=== PATIENT | male | born 1980 | race Caucasian/White ===

== ENCOUNTER → 2017-01-07 | Outpatient (CLI) | payer BC | END | disposition home or self-care (01) | LOC: MW.RT 19:53 | PROVIDERS: ATTEND Internal Medicine | DX: G47.30 Sleep apnea, unspecified (principal); R06.83 Snoring; G47.61 Periodic limb movement disorder; I49.5 Sick sinus syndrome; I10 Essential (primary) hypertension | CPT/HCPCS: 95810 ==

== ENCOUNTER 2017-05-19 03:05 | Emergency (ER) | payer BC ==
[2017-05-19] MEDS ORDERED: Sodium Chloride 0.9% 1,000 ML IV ONE ×2 (03:29→04:10)
[2017-05-19] MEDS ORDERED: Sodium Chloride 0.9% 2.5 ML Syringe FLUSH PRN (03:29)
[2017-05-19] MEDS ORDERED: Sodium Chloride 0.9% 10 ML Syringe FLUSH PRN (03:29)
[2017-05-19] MEDS ORDERED: Ketorolac 30 MG/ML SDV IVPUSH ONE (03:29)
--- NOTE | 2017-05-19 03:33 | EDM.PDOC ---
ED HPI GENERAL MEDICAL PROBLEM - General Chief Complaint: Headache Stated Complaint: BODY ACHES, CRAMPS, BLURRY VISION Time Seen by Provider: 05/19/17 03:22 - History of Present Illness INITIAL COMMENTS - FREE TEXT/NARRATIVE: HISTORY AND PHYSICAL: History of present illness: The patient is a 36-year-old male with a history of triglyceridemia LVH anxiety heavy tobacco use and regular alcohol use who presents to the ER with complaints of body aches that started this morning but then seemed to improve his the day went on but which returned at about 9 PM associated with a diffuse headache. The patient describes the headache is all over his head and not specifically right or left front or back. He has no neck pain no sore throat no sinus drainage or congestion no cough no chest pain or shortness of breath no abdominal pain no nausea vomiting or diarrhea. The patient thinks he's been keeping up with his hydration but is not completely sure. The patient does drink alcohol on a regular basis but says he has cut back significantly. According to the patient he was on medication after his admission in October and did do some follow-up has not followed up recently and stopped taking all of his medication. He believes he is on something for blood pressure and his heart. The patient denies any urinary complaints and has no focal weakness but feels like he has generalized weakness and malaise. He has not had any syncope and has no back pain. The patient did not have a documented temperature at home but feels feverish in his face but his body feels cold. On my evaluation conversation with the patient he denied any specific location of the body aches and so they were diffuse throughout his whole body. On one occasion he did tell nursing that his back was hurting him but when re-asked about the specific nature of that he again stated it's more diffuse body pain which is generalized in one specific area. The patient denies any drug use history. Patient denies any focal weakness in his extremities and has no neurosensory changes in his extremities. Review of systems: As per history of present illness and below otherwise all systems reviewed and negative. Past medical history: As per history of present illness and as reviewed below otherwise noncontributory. Surgical history: As per history of present illness and as reviewed below otherwise noncontributory. Social history: No reported history of drug or alcohol abuse. Family history: As per history of present illness and as reviewed below otherwise noncontributory. Physical exam: Gen.: Well-developed well-nourished man speaking clearly in the ED and is nontoxic and moves easily in the ER. Vital signs of the note by me. Temperature by me orally was 99. 6 although his face felt somewhat warmer than that temperature. HEENT: Atraumatic, normocephalic, pupils reactive, negative for conjunctival pallor or scleral icterus, mucous membranes moist, throat clear, neck supple, nontender, trachea midline. There is no cervical adenopathy or nuchal rigidity Lungs: Clear to auscultation, breath sounds equal bilaterally, chest nontender. Heart: S1S2, regular rate and rhythm no overt murmurs Abdomen: Soft, nondistended, nontender. Negative for masses or hepatosplenomegaly. Hypoactive bowel sounds Negative for costovertebral tenderness. Pelvis: Stable nontender. Genitourinary: Deferred. Rectal: Deferred. Extremities: Atraumatic, negative for cords or calf pain. Neurovascular unremarkable. Neuro: Awake, alert, oriented. Cranial nerves II through XII unremarkable. Cerebellum unremarkable. Motor and sensory unremarkable throughout. Exam nonfocal. Patient exhibits no sign of tremulousness Back: There are no midline step-offs tenderness or defects of the thoracic or lumbar spine no posterior rib tenderness no CVA tenderness and no discrete areas of muscle tenderness on palpation Diagnostics: CBC CMP lactic acid UA alcohol level chest x-ray Therapeutics: IV fluids Toradol Patient states that his headache is gone after the Toradol and is receiving a second liter of IV fluids as he has had difficulty producing urine after the first liter. Patient is aware of testing results up to this point and we are currently awaiting his UA results to further evaluate his hydration status. I told him that he would likely need to have follow-up in the clinic and is potentially could be more of a viral illness with some dehydration. Nursing again tells me that the patient is complaining of lower back pain. When I go in and reevaluated him he does not have any midline step-offs tenderness or defects of the lumbar spine and there is some reproducible paraspinal muscle discomfort which she describes as deep an achy like. The patient says he has had discomfort on and off in the past and he initially did not have that when he presented here to the ED but since he is laying in the bed he feels that she' s been getting more spasm-like discomfort. He says that he has seen a chiropractor in the past and his has been encouraging him to go back to the chiropractor. We will go ahead and order some morphine and plan on disposition home and have encouraged him to follow-up in our clinic or see the chiropractor this choice to have the lower back pain reevaluated. He doesn't have any numbness weakness neurosensory changes or bowel or bladder disturbances so imaging will be deferred as he has not had any trauma. He is comfortable with that. Impression: Body aches/malaise, headache, lumbar back pain stable etiology unclear Definitive disposition and diagnosis as appropriate pending reevaluation and review of above. headache Pain Score (Numeric/FACES): 5 generalized Pain Score (Numeric/FACES): 4 - Related Data Allergies Allergy/AdvReac Type Severity Reaction Status Date / Time No Known Allergies Allergy Verified 11/09/16 13:41 Home Meds: Home Meds . [No Known Home Meds] 05/19/17 [History] Past Medical History - Past Health History Medical/Surgical History: Denies Medical/Surgical History HEENT History: Reports: None Cardiovascular History: Reports: Other (See Below) Other Cardiovascular History: Dx chest pain Respiratory History: Reports: None Gastrointestinal History: Reports: None Genitourinary History: Reports: None Musculoskeletal History: Reports: None Neurological History: Reports: None Psychiatric History: Reports: None Endocrine/Metabolic History: Reports: None Hematologic History: Reports: None Immunologic History: Reports: None Oncologic (Cancer) History: Reports: None Dermatologic History: Reports: None - Infectious Disease History Infectious Disease History: Reports: Chicken Pox - Past Surgical History Head Surgeries/Procedures: Reports: None HEENT Surgical History: Reports: None GI Surgical History: Reports: Colonoscopy Male Surgical History: Reports: None Endocrine Surgical History: Reports: None Neurological Surgical History: Reports: None Musculoskeletal Surgical History: Reports: None Dermatological Surgical History: Reports: None Social & Family History - Family History Family Medical History: Noncontributory HEENT: Reports: None Cardiac: Reports: [place] Respiratory: Reports: None GI: Reports: None : Reports: None OBGYN: Reports: None Musculoskeletal: Reports: None Psychiatric: Reports: None Endocrine/Metabolic: Reports: None Hematologic: Reports: None Immunologic: Reports: None Dermatologic: Reports: None Oncologic: Reports: None - Tobacco Use Smoking Status *Q: Current Every Day Smoker Years of Tobacco use: 12 Packs/Tins Daily: 0.5 Second Hand Smoke Exposure: No - Caffeine Use Caffeine Use: Reports: Energy Drinks - Alcohol Use Days Per Week of Alcohol Use: 2 Number of Drinks Per Day: 2 Total Drinks Per Week: 4 - Recreational Drug Use Recreational Drug Use: No ED ROS GENERAL - Review of Systems Review Of Systems: ROS reveals no pertinent complaints other than HPI. ED EXAM, GENERAL - Physical Exam Exam: See Below (See dictation) Course - Vital Signs Last Recorded V/S: Last Vital Signs Temp 37.4 C 05/19/17 03:17 Pulse 100 05/19/17 03:17 Resp 20 05/19/17 03:17 BP 140/111 H 05/19/17 03:17 Pulse Ox 100 05/19/17 03:17 - Orders/Labs/Meds Orders: Active Orders 24 hr Category Date Time Status Chest 2V [CR] Stat Exams 05/19/17 03:29 Taken Sodium Chloride 0.9% [Saline Flush] Med 05/19/17 03:29 Active 10 ml FLUSH ASDIRECTED PRN Sodium Chloride 0.9% [Saline Flush] Med 05/19/17 03:29 Active 2.5 ml FLUSH ASDIRECTED PRN Saline Lock Insert [OM.PC] Stat Oth 05/19/17 03:29 Ordered Medication Orders Sodium Chloride (Saline Flush) 10 ml FLUSH ASDIRECTED PRN PRN Reason: Keep Vein Open Last Admin: 05/19/17 03:40 Dose: 10 ml Sodium Chloride (Saline Flush) 2.5 ml FLUSH ASDIRECTED PRN PRN Reason: Keep Vein Open Last Admin: 05/19/17 03:40 Dose: 2.5 ml Labs: Laboratory Tests 05/19/17 05/19/17 05/19/17 Range/Units 03:33 03:33 03:33 WBC 3.68 L (4.0-11.0) K/uL RBC 4.87 (4.50-5.90) M/uL Hgb 14.8 (13.0-17.0) g/dL Hct 43.4 (38.0-50.0) % MCV 89.1 (80.0-98.0) fL MCH 30.4 (27.0-32.0) pg MCHC 34.1 (31.0-37.0) g/dL RDW Std Deviation 45.7 (28.0-62.0) fl RDW Coeff of Irina 14 (11.0-15.0) % Plt Count 131 L (150-400) K/uL MPV 10.20 (7.40-12.00) fL Neut % (Auto) 55.2 (48.0-80.0) % Lymph % (Auto) 30.4 (16.0-40.0) % Banner % (Auto) 12.5 (0.0-15.0) % Eos % (Auto) 1.4 (0.0-7.0) % Baso % (Auto) 0.5 (0.0-1.5) % Neut # (Auto) 2.0 (1.4-5.7) K/uL Lymph # (Auto) 1.1 (0.6-2.4) K/uL Banner # (Auto) 0.5 (0.0-0.8) K/uL Eos # (Auto) 0.1 (0.0-0.7) K/uL Baso # (Auto) 0.0 (0.0-0.1) K/uL Nucleated RBC % 0.0 /100WBC Nucleated RBCs # 0 K/uL Lactate 1.4 (0.20-2.00) mmol/L Sodium 136 (136-146) mmol/L Potassium 4.1 (3.5-5.1) mmol/L Chloride 106 (98-110) mmol/L Carbon Dioxide 19 L (21-31) mmol/L BUN 14 (6.0-23.0) mg/dL Creatinine 1.2 (0.6-1.5) mg/dL Est Cr Clr Drug Dosing 95.25 mL/min Estimated GFR (MDRD) > 60.0 ml/min Glucose 100 (60-110) mg/dL Calcium 8.7 L (8.8-10.8) mg/dL Total Bilirubin 0.3 (0.1-1.5) mg/dL AST 38 (5-40) IU/L ALT 64 H (8-54) IU/L Alkaline Phosphatase 72 (40-150) Total Protein 7.1 (6.0-8.0) g/dL Albumin 4.0 (3.5-5.0) g/dL Globulin 3.1 (2.0-3.5) g/dL Albumin/Globulin Ratio 1.3 (1.3-2.8) Urine Color Urine Appearance Urine pH (5.0-8.0) Ur Specific [place] (1.001-1.035) Urine Protein (NEGATIVE) mg/dL Urine Glucose (UA) (NEGATIVE) mg/dL Urine Ketones (NEGATIVE) mg/dL Urine Occult Blood (NEGATIVE) Urine Nitrite (NEGATIVE) Urine Bilirubin (NEGATIVE) Urine Urobilinogen (<2.0) EU/dL Ur Leukocyte Esterase (NEGATIVE) Urine RBC (0-2/HPF) Urine WBC (0-5/HPF) Ur Epithelial Cells (NONE-FEW) Urine Bacteria (NEGATIVE) Ethyl Alcohol < 10.0 mg/dL 05/19/17 Range/Units 04:45 WBC (4.0-11.0) K/uL RBC (4.50-5.90) M/uL Hgb (13.0-17.0) g/dL Hct (38.0-50.0) % MCV (80.0-98.0) fL MCH (27.0-32.0) pg MCHC (31.0-37.0) g/dL RDW Std Deviation (28.0-62.0) fl RDW Coeff of Irina (11.0-15.0) % Plt Count (150-400) K/uL MPV (7.40-12.00) fL Neut % (Auto) (48.0-80.0) % Lymph % (Auto) (16.0-40.0) % Banner % (Auto) (0.0-15.0) % Eos % (Auto) (0.0-7.0) % Baso % (Auto) (0.0-1.5) % Neut # (Auto) (1.4-5.7) K/uL Lymph # (Auto) (0.6-2.4) K/uL Banner # (Auto) (0.0-0.8) K/uL Eos # (Auto) (0.0-0.7) K/uL Baso # (Auto) (0.0-0.1) K/uL Nucleated RBC % /100WBC Nucleated RBCs # K/uL Lactate (0.20-2.00) mmol/L Sodium (136-146) mmol/L Potassium (3.5-5.1) mmol/L Chloride (98-110) mmol/L Carbon Dioxide (21-31) mmol/L BUN (6.0-23.0) mg/dL Creatinine (0.6-1.5) mg/dL Est Cr Clr Drug Dosing mL/min Estimated GFR (MDRD) ml/min Glucose (60-110) mg/dL Calcium (8.8-10.8) mg/dL Total Bilirubin (0.1-1.5) mg/dL AST (5-40) IU/L ALT (8-54) IU/L Alkaline Phosphatase (40-150) Total Protein (6.0-8.0) g/dL Albumin (3.5-5.0) g/dL Globulin (2.0-3.5) g/dL Albumin/Globulin Ratio (1.3-2.8) Urine Color YELLOW Urine Appearance CLEAR Urine pH 6.0 (5.0-8.0) Ur Specific [place] 1.020 (1.001-1.035) Urine Protein NEGATIVE (NEGATIVE) mg/dL Urine Glucose (UA) NEGATIVE (NEGATIVE) mg/dL Urine Ketones NEGATIVE (NEGATIVE) mg/dL Urine Occult Blood NEGATIVE (NEGATIVE) Urine Nitrite NEGATIVE (NEGATIVE) Urine Bilirubin NEGATIVE (NEGATIVE) Urine Urobilinogen 0.2 (<2.0) EU/dL Ur Leukocyte Esterase NEGATIVE (NEGATIVE) Urine RBC NONE SEEN (0-2/HPF) Urine WBC 0-1 (0-5/HPF) Ur Epithelial Cells RARE (NONE-FEW) Urine Bacteria RARE (NEGATIVE) Ethyl Alcohol mg/dL Meds: Medications Generic Name Dose Route Start Last Admin Trade Name Freq PRN Reason Stop Dose Admin Sodium Chloride 10 ml 05/19/17 03:29 05/19/17 03:40 Saline Flush FLUSH 10 ml ASDIRECTED PRN Administration Keep Vein Open Sodium Chloride 2.5 ml 05/19/17 03:29 05/19/17 03:40 Saline Flush FLUSH 2.5 ml ASDIRECTED PRN Administration Keep Vein Open Discontinued Medications Generic Name Dose Route Start Last Admin Trade Name Freq PRN Reason Stop Dose Admin Sodium Chloride 1,000 mls @ 999 mls/hr 05/19/17 03:29 05/19/17 03:40 Normal Saline IV 05/19/17 04:29 999 mls/hr STAT ONE Administration Sodium Chloride 1,000 mls @ 999 mls/hr 05/19/17 04:10 05/19/17 04:54 Normal Saline IV 05/19/17 05:10 999 mls/hr .Bolus ONE Administration Ketorolac Tromethamine 30 mg 05/19/17 03:29 05/19/17 03:40 Toradol IVPUSH 05/19/17 03:30 30 mg ONETIME ONE Administration Morphine Sulfate 4 mg 05/19/17 05:18 Morphine IVPUSH 05/19/17 05:19 ONETIME ONE Ondansetron HCl 4 mg 05/19/17 05:18 Zofran IVPUSH 05/19/17 05:19 ONETIME ONE Departure - Departure Time of Disposition: 05:26 Disposition: Home, Self-Care 01 Condition: Good Clinical Impression: Body aches, Malaise and fatigue Headache Qualifiers: Headache type: unspecified Headache chronicity pattern: acute headache Intractability: not intractable Qualified Code(s): R51 - Headache Back pain Qualifiers: Back pain location: low back pain Chronicity: unspecified Back pain laterality : bilateral Sciatica presence: without sciatica Qualified Code(s): M54.5 - Low back pain - Discharge Information Referrals: PCP,None [Primary Care Provider] - Forms: ED Department Discharge Additional Instructions: The following information is given to patients seen in the emergency department who are being discharged to home. This information is to outline your options for follow-up care. We provide all patients seen in our emergency department with a follow-up referral. The need for follow-up, as well as the timing and circumstances, are variable depending upon the specifics of your emergency department visit. If you don't have a primary care physician on staff, we will provide you with a referral. We always advise you to contact your personal physician following an emergency department visit to inform them of the circumstance of the visit and for follow-up with them and/or the need for any referrals to a consulting specialist. The emergency department will also refer you to a specialist when appropriate. This referral assures that you have the opportunity for followup care with a specialist. All of these measure are taken in an effort to provide you with optimal care, which includes your followup. Under all circumstances we always encourage you to contact your private physician who remains a resource for coordinating your care. When calling for followup care, please make the office aware that this follow-up is from your recent emergency room visit. If for any reason you are refused follow-up, please contact the [facility] emergency department at and ask to speak to the emergency department charge nurse. [facility] Primary care- Internal Medicine and Family [address] [address] Please call and follow-up in our clinic with one of her providers return to ER as needed as discussed. Rest push hydration use [id number] Tylenol and ibuprofen for aches and pains as well as any fevers. Use tramadol you have been prescribed via [facility] if pain does not improve with the Tylenol and ibuprofen. - My Orders Last 24 Hours: My Active Orders 05/19/17 03:29 Chest 2V [CR] Stat Sodium Chloride 0.9% [Saline Flush] 10 ml FLUSH ASDIRECTED PRN Sodium Chloride 0.9% [Saline Flush] 2.5 ml FLUSH ASDIRECTED PRN Saline Lock Insert [OM.PC] Stat - Assessment/Plan Last 24 Hours: My Active Orders 05/19/17 03:29 Chest 2V [CR] Stat Sodium Chloride 0.9% [Saline Flush] 10 ml FLUSH ASDIRECTED PRN Sodium Chloride 0.9% [Saline Flush] 2.5 ml FLUSH ASDIRECTED PRN Saline Lock Insert [OM.PC] Stat
[2017-05-19 04:01] LABS: CHLORIDE,CL 106 mmol/L (98-110); SODIUM,NA 136 mmol/L (136-146)
[2017-05-19] MEDS ORDERED: Morphine 2 MG/ML Syringe IVPUSH ONE (05:18)
[2017-05-19] MEDS ORDERED: Ondansetron 4 MG/2 ML SDV IVPUSH ONE (05:18)
[2017-05-19 06:37] VITALS: BP 131/85
--- NOTE | 2017-05-19 11:18 | CR ---
EXAM DATE: 05/19/17 PATIENT'S AGE: 36 Patient: SKINNY PLATA Facility: [place], [place] Site . Site : 1980 Study: XRay Chest [id number]/25/2017 4:12:50 AM Ordering Physician: Savage Cannon Final Report: INDICATIONS: Pain. Shortness of breath. Aching and chills all day. TECHNIQUE: Chest 2 view. COMPARISON: Chest radiograph November 09, 2016. FINDINGS: No pneumothorax, pleural effusion or airspace consolidation. Cardiac and mediastinal contours are within normal limits. Upper abdomen and osseous structures show no acute abnormality. IMPRESSION: No evidence of acute cardiopulmonary disease. Dictated by Mansoor Christopher MD @ 05/19/2017 4:18:03 AM Dictated by: Mansoor Christopher MD @ 05/19/2017 04:18:09 (Electronic Signature) Report Signed by Proxy. MTDKhalida
== END 2017-05-19 06:37 | disposition home or self-care (01) ==
LOC: MW.ED 03:05
DX: R51 Headache (principal); M54.5 Low back pain; R53.83 Other fatigue; R53.81 Other malaise; F17.210 Nicotine dependence, cigarettes, uncomplicated
CPT/HCPCS: 36415; 71020; 80053; 81001; 83605; 85025; 96361; 96374; 96375; 99284; G0480; J1885; J2270; J2405; J7040

== ENCOUNTER 2018-01-23 21:55 | Emergency (ER) | payer BC ==
--- NOTE | 2018-01-23 22:02 | EDM.PDOC ---
ED HPI GENERAL MEDICAL PROBLEM - General Stated Complaint: CHEST PAIN Time Seen by Provider: 01/23/18 21:58 - History of Present Illness INITIAL COMMENTS - FREE TEXT/NARRATIVE: HISTORY AND PHYSICAL: History of present illness: Patient 37-year-old white malewith past medical history sensory concern chest pain he had this off and on for a year he never followed up on a prior visit from the emergency department approximately one year ago he states that the sharp without associated palpitations shortness breath nausea vomiting diaphoresis he denies other concern. Review of systems: As per history of present illness and below otherwise all systems reviewed and negative. Past medical history: As per history of present illness and as reviewed below otherwise noncontributory. Surgical history: As per history of present illness and as reviewed below otherwise noncontributory. Social history: No reported history of drug or alcohol abuse. Family history: As per history of present illness and as reviewed below otherwise noncontributory. Physical exam: HEENT: Atraumatic, normocephalic, pupils reactive, negative for conjunctival pallor or scleral icterus, mucous membranes moist, throat clear, neck supple, nontender, trachea midline. Lungs: Clear to auscultation, breath sounds equal bilaterally, chest nontender. Heart: S1S2, regular, negative for clicks, rubs, or JVD. Abdomen: Soft, nondistended, nontender. Negative for masses or hepatosplenomegaly. Negative for costovertebral tenderness. Pelvis: Stable nontender. Genitourinary: Deferred. Rectal: Deferred. Extremities: Atraumatic, negative for cords or calf pain. Neurovascular unremarkable. Neuro: Awake, alert, oriented. Cranial nerves II through XII unremarkable. Cerebellum unremarkable. Motor and sensory unremarkable throughout. Exam nonfocal. Diagnostics: CBC CMP and PT/INR troponin chest x-ray EKG Therapeutics: IV O2 monitor Impression: 1 atypical chest pain Definitive disposition and diagnosis as appropriate pending reevaluation and review of above. - Related Data Allergies Allergy/AdvReac Type Severity Reaction Status Date / Time No Known Allergies Allergy Verified 11/09/16 13:41 Home Meds: Home Meds . [No Known Home Meds] 05/19/17 [History] Past Medical History - Past Health History Medical/Surgical History: Denies Medical/Surgical History HEENT History: Reports: None Cardiovascular History: Reports: Other (See Below) Other Cardiovascular History: Dx chest pain Respiratory History: Reports: None Gastrointestinal History: Reports: None Genitourinary History: Reports: None Musculoskeletal History: Reports: None Neurological History: Reports: None Psychiatric History: Reports: None Endocrine/Metabolic History: Reports: None Hematologic History: Reports: None Immunologic History: Reports: None Oncologic (Cancer) History: Reports: None Dermatologic History: Reports: None - Infectious Disease History Infectious Disease History: Reports: Chicken Pox - Past Surgical History Head Surgeries/Procedures: Reports: None HEENT Surgical History: Reports: None GI Surgical History: Reports: Colonoscopy Male Surgical History: Reports: None Endocrine Surgical History: Reports: None Neurological Surgical History: Reports: None Musculoskeletal Surgical History: Reports: None Dermatological Surgical History: Reports: None Social & Family History - Family History Family Medical History: Noncontributory HEENT: Reports: None Cardiac: Reports: [place] Respiratory: Reports: None GI: Reports: None : Reports: None OBGYN: Reports: None Musculoskeletal: Reports: None Psychiatric: Reports: None Endocrine/Metabolic: Reports: None Hematologic: Reports: None Immunologic: Reports: None Dermatologic: Reports: None Oncologic: Reports: None - Tobacco Use Smoking Status *Q: Current Every Day Smoker Years of Tobacco use: 12 Packs/Tins Daily: 0.5 Second Hand Smoke Exposure: No - Caffeine Use Caffeine Use: Reports: Energy Drinks - Alcohol Use Days Per Week of Alcohol Use: 2 Number of Drinks Per Day: 2 Total Drinks Per Week: 4 - Recreational Drug Use Recreational Drug Use: No ED ROS GENERAL - Review of Systems Review Of Systems: ROS reveals no pertinent complaints other than HPI. ED EXAM, GENERAL - Physical Exam Exam: See Below (See dictation) Departure - Departure Time of Disposition: 22:01 Disposition: Home, Self-Care 01 Condition: Good Clinical Impression: Atypical chest pain - Discharge Information Referrals: PCP,None [Primary Care Provider] - Additional Instructions: The following information is given to patients seen in the emergency department who are being discharged to home. This information is to outline your options for follow-up care. We provide all patients seen in our emergency department with a follow-up referral. The need for follow-up, as well as the timing and circumstances, are variable depending upon the specifics of your emergency department visit. If you don't have a primary care physician on staff, we will provide you with a referral. We always advise you to contact your personal physician following an emergency department visit to inform them of the circumstance of the visit and for follow-up with them and/or the need for any referrals to a consulting specialist. The emergency department will also refer you to a specialist when appropriate. This referral assures that you have the opportunity for followup care with a specialist. All of these measure are taken in an effort to provide you with optimal care, which includes your followup. Under all circumstances we always encourage you to contact your private physician who remains a resource for coordinating your care. When calling for followup care, please make the office aware that this follow-up is from your recent emergency room visit. If for any reason you are refused follow-up, please contact the [facility] emergency department at and asked to speak to the emergency department charge nurse. MINDY Chi [facility] [address] [place] [id number] Stop smoking follow-up primary care and/or private medical doctor call to schedule routine appointment for cardiology referral return as needed as discussed
[2018-01-23 22:35] LABS: CHLORIDE,CL 103 mmol/L (98-107); SODIUM,NA 138 mmol/L (136-148)
[2018-01-23] MEDS ORDERED: Acetaminophen 500 MG Tab PO ONE (23:15)
[2018-01-23 23:46] VITALS: BP 143/95
--- NOTE | 2018-01-25 12:07 | CR ---
EXAM DATE: 01/23/18 PATIENT'S AGE: 37 Patient: SKINNY PLATA Facility: [place], [place] Site . Site : 1980 Study: XRay Chest [id number]/31/2018 10:33:02 PM Ordering Physician: Agustín Jacinto Final Report: INDICATION: Chest pain, shortness of breath TECHNIQUE: Chest radiograph 1 view COMPARISON: 05/19/17 FINDINGS: Mediastinum: The heart silhouette is normal in size and morphology. The mediastinum is normal in appearance. Lungs: Both lungs are unremarkable in appearance. No sign of pleural effusion seen. No pneumothorax is identified. Bones and soft tissue: Unremarkable for age. IMPRESSION: 1. No acute cardiopulmonary disease is seen. Dictated by: Lamonte Wilhelm MD @ 01/23/2018 22:51:06 (Electronic Signature) Report Signed by Proxy. [facility] HOSPITALKhalida
== END 2018-01-23 23:20 | disposition home or self-care (01) ==
LOC: MW.ED 21:55
DX: R07.89 Other chest pain (principal); F17.210 Nicotine dependence, cigarettes, uncomplicated
CPT/HCPCS: 71045; 80053; 84484; 85025; 85610; 93005; 99285; A9270; 99283

== ENCOUNTER 2018-03-01 09:05 | Emergency (ER) | payer BC ==
[2018-03-01] MEDS ORDERED: LORazepam 2 MG/ML SDV IVPUSH ONE (09:08)
[2018-03-01] MEDS ORDERED: Sodium Chloride 0.9% 1,000 ML IV ONE (09:08)
--- NOTE | 2018-03-01 09:10 | EDM.PDOC ---
ED HPI GENERAL MEDICAL PROBLEM - General Stated Complaint: AMBULANCE Time Seen by Provider: 03/01/18 09:09 Source of Information: Reports: Patient - History of Present Illness INITIAL COMMENTS - FREE TEXT/NARRATIVE: HISTORY AND PHYSICAL: History of present illness: [Patient presents with seizure activity he has no known history of seizure disorder, he has recently started Wellbutrin for anxiety, history of alcohol use and abuse he did drink some alcohol yesterday but states it was not to excess [place], on workers described seizure activity, the patient did have approximately 45 seconds of seizure activity when EMS had pulled onto the scene they did witness seizure- like activity and then postictal state patient arrives to emergency room alert and oriented Currently he is alert no fever nausea vomiting chills sweats no chest pain shortness breath headache dizziness or palpitation no bowel or urine symptoms no seizure activity while in the ER] Review of systems: As per history of present illness and below otherwise all systems reviewed and negative. Past medical history: As per history of present illness and as reviewed below otherwise noncontributory. Surgical history: As per history of present illness and as reviewed below otherwise noncontributory. Social history: No reported history of drug or alcohol abuse. Family history: As per history of present illness and as reviewed below otherwise noncontributory. Physical exam: HEENT: Atraumatic, normocephalic, pupils reactive, negative for conjunctival pallor or scleral icterus, mucous membranes moist, throat clear, neck supple, nontender, trachea midline. Lungs: Clear to auscultation, breath sounds equal bilaterally, chest nontender. Heart: S1S2, regular, negative for clicks, rubs, or JVD. Abdomen: Soft, nondistended, nontender. Negative for masses or hepatosplenomegaly. Negative for costovertebral tenderness. Pelvis: Stable nontender. Genitourinary: Deferred. Rectal: Deferred. Extremities: Atraumatic, negative for cords or calf pain. Neurovascular unremarkable. Neuro: Awake, alert, oriented. Cranial nerves II through XII unremarkable. Cerebellum unremarkable. Motor and sensory unremarkable throughout. Exam nonfocal. Diagnostics: [CBC CMP troponin UA drug screen alcohol EKG Chest [address] no contrast ] Therapeutics: [ liter normal saline bolus Ativan 1 mg IV ] Impression: [Seizure like activity] Definitive disposition and diagnosis as appropriate pending reevaluation and review of above. Bilateral Leg Pain Score (Numeric/FACES): 5 - Related Data Allergies Allergy/AdvReac Type Severity Reaction Status Date / Time No Known Allergies Allergy Verified 03/01/18 09:17 Home Meds: Home Meds . [No Known Home Meds] 05/19/17 [History] Past Medical History - Past Health History Medical/Surgical History: Denies Medical/Surgical History HEENT History: Reports: None Cardiovascular History: Reports: Hypertension, Other (See Below) Other Cardiovascular History: Dx chest pain Respiratory History: Reports: None Gastrointestinal History: Reports: None Genitourinary History: Reports: None Musculoskeletal History: Reports: None Neurological History: Reports: None Psychiatric History: Reports: None Endocrine/Metabolic History: Reports: None Hematologic History: Reports: None Immunologic History: Reports: None Oncologic (Cancer) History: Reports: None Dermatologic History: Reports: None - Infectious Disease History Infectious Disease History: Reports: Chicken Pox - Past Surgical History Head Surgeries/Procedures: Reports: None HEENT Surgical History: Reports: None, Oral Surgery GI Surgical History: Reports: Colonoscopy Male Surgical History: Reports: None Endocrine Surgical History: Reports: None Neurological Surgical History: Reports: None Musculoskeletal Surgical History: Reports: None Dermatological Surgical History: Reports: None Social & Family History - Family History Family Medical History: Noncontributory HEENT: Reports: None Cardiac: Reports: MS Respiratory: Reports: None GI: Reports: None : Reports: None OBGYN: Reports: None Musculoskeletal: Reports: None Psychiatric: Reports: None Endocrine/Metabolic: Reports: None Hematologic: Reports: None Immunologic: Reports: None Dermatologic: Reports: None Oncologic: Reports: None - Tobacco Use Smoking Status *Q: Current Every Day Smoker Years of Tobacco use: 20 Packs/Tins Daily: 2 Second Hand Smoke Exposure: No - Caffeine Use Caffeine Use: Reports: Energy Drinks, Soda - Alcohol Use Days Per Week of Alcohol Use: 4 Number of Drinks Per Day: 5 Total Drinks Per Week: 20 - Recreational Drug Use Recreational Drug Use: No ED ROS GENERAL - Review of Systems Review Of Systems: ROS reveals no pertinent complaints other than HPI. ED EXAM, GENERAL - Physical Exam Exam: See Below Course - Vital Signs Last Recorded V/S: Last Vital Signs Temp 98.5 F 03/01/18 09:10 Pulse 79 03/01/18 10:13 Resp 20 03/01/18 10:13 BP 162/100 H 03/01/18 10:13 Pulse Ox 97 03/01/18 10:13 - Orders/Labs/Meds Orders: Active Orders 24 hr Category Date Time Status EKG Documentation Completion [RC] STAT Care 03/01/18 09:07 Active DRUG SCREEN, URINE [URCHEM] Stat Lab 03/01/18 10:00 Ordered UA W/MICROSCOPIC [URIN] Stat Lab 03/01/18 10:00 Ordered Labs: Laboratory Tests 03/01/18 03/01/18 03/01/18 Range/Units 09:20 09:20 10:00 WBC 9.08 (4.0-11.0) K/uL RBC 5.04 (4.50-5.90) M/uL Hgb 15.1 (13.0-17.0) g/dL Hct 45.0 (38.0-50.0) % MCV 89.3 (80.0-98.0) fL MCH 30.0 (27.0-32.0) pg MCHC 33.6 (31.0-37.0) g/dL RDW Std Deviation 44.0 (28.0-62.0) fl RDW Coeff of Irina 13 (11.0-15.0) % Plt Count 169 (150-400) K/uL MPV 10.20 (7.40-12.00) fL Neut % (Auto) 76.3 (48.0-80.0) % Lymph % (Auto) 17.6 (16.0-40.0) % [place] % (Auto) 5.0 (0.0-15.0) % Eos % (Auto) 0.7 (0.0-7.0) % Baso % (Auto) 0.4 (0.0-1.5) % Neut # (Auto) 6.9 H (1.4-5.7) K/uL Lymph # (Auto) 1.6 (0.6-2.4) K/uL [place] # (Auto) 0.5 (0.0-0.8) K/uL Eos # (Auto) 0.1 (0.0-0.7) K/uL Baso # (Auto) 0.0 (0.0-0.1) K/uL Nucleated RBC % 0.0 /100WBC Nucleated RBCs # 0 K/uL Sodium 138 (136-148) mmol/L Potassium 4.0 (3.5-5.1) mmol/L Chloride 104 (98-107) mmol/L Carbon Dioxide 23.0 (21.0-32.0) mmol/L BUN 14 (7.0-18.0) mg/dL Creatinine 1.2 (0.8-1.3) mg/dL Est Cr Clr Drug Dosing 80.75 mL/min Estimated GFR (MDRD) > 60.0 ml/min Glucose 127 H (74-106) mg/dL Calcium 8.9 (8.5-10.1) mg/dL Total Bilirubin 0.2 (0.2-1.0) mg/dL AST 30 (15-37) IU/L ALT 61 (14-63) IU/L Alkaline Phosphatase 79 (46-116) U/L Troponin I < 0.050 (0.000-0.056) ng/mL Total Protein 7.1 (6.4-8.2) g/dL Albumin 3.6 (3.4-5.0) g/dL Globulin 3.5 (2.0-3.5) g/dL Albumin/Globulin Ratio 1.0 L (1.3-2.8) Urine Color YELLOW Urine Appearance CLEAR Urine pH 6.5 (5.0-8.0) Ur Specific [place] 1.015 (1.001-1.035) Urine Protein NEGATIVE (NEGATIVE) mg/dL Urine Glucose (UA) NEGATIVE (NEGATIVE) mg/dL Urine Ketones NEGATIVE (NEGATIVE) mg/dL Urine Occult Blood NEGATIVE (NEGATIVE) Urine Nitrite NEGATIVE (NEGATIVE) Urine Bilirubin NEGATIVE (NEGATIVE) Urine Urobilinogen 0.2 (<2.0) EU/dL Ur Leukocyte Esterase NEGATIVE (NEGATIVE) Urine RBC NONE SEEN (0-2/HPF) Urine WBC 0-1 (0-5/HPF) Ur Epithelial Cells RARE (NONE-FEW) Urine Bacteria RARE (NEGATIVE) Urine Mucus LIGHT (NONE-MOD) Urine Opiates Screen (NEGATIVE) Ur Oxycodone Screen (NEGATIVE) Urine Methadone Screen (NEGATIVE) Ur Barbiturates Screen (NEGATIVE) Ur Phencyclidine Scrn (NEGATIVE) Ur Amphetamine Screen (NEGATIVE) U Methamphetamines Scrn (NEGATIVE) U Benzodiazepines Scrn (NEGATIVE) U Cocaine Metab Screen (NEGATIVE) U Marijuana (THC) Screen (NEGATIVE) Ethyl Alcohol < 3.0 mg/dL 03/01/18 Range/Units 10:00 WBC (4.0-11.0) K/uL RBC (4.50-5.90) M/uL Hgb (13.0-17.0) g/dL Hct (38.0-50.0) % MCV (80.0-98.0) fL MCH (27.0-32.0) pg MCHC (31.0-37.0) g/dL RDW Std Deviation (28.0-62.0) fl RDW Coeff of Irina (11.0-15.0) % Plt Count (150-400) K/uL MPV (7.40-12.00) fL Neut % (Auto) (48.0-80.0) % Lymph % (Auto) (16.0-40.0) % [place] % (Auto) (0.0-15.0) % Eos % (Auto) (0.0-7.0) % Baso % (Auto) (0.0-1.5) % Neut # (Auto) (1.4-5.7) K/uL Lymph # (Auto) (0.6-2.4) K/uL [place] # (Auto) (0.0-0.8) K/uL Eos # (Auto) (0.0-0.7) K/uL Baso # (Auto) (0.0-0.1) K/uL Nucleated RBC % /100WBC Nucleated RBCs # K/uL Sodium (136-148) mmol/L Potassium (3.5-5.1) mmol/L Chloride (98-107) mmol/L Carbon Dioxide (21.0-32.0) mmol/L BUN (7.0-18.0) mg/dL Creatinine (0.8-1.3) mg/dL Est Cr Clr Drug Dosing mL/min Estimated GFR (MDRD) ml/min Glucose (74-106) mg/dL Calcium (8.5-10.1) mg/dL Total Bilirubin (0.2-1.0) mg/dL AST (15-37) IU/L ALT (14-63) IU/L Alkaline Phosphatase (46-116) U/L Troponin I (0.000-0.056) ng/mL Total Protein (6.4-8.2) g/dL Albumin (3.4-5.0) g/dL Globulin (2.0-3.5) g/dL Albumin/Globulin Ratio (1.3-2.8) Urine Color Urine Appearance Urine pH (5.0-8.0) Ur Specific [place] (1.001-1.035) Urine Protein (NEGATIVE) mg/dL Urine Glucose (UA) (NEGATIVE) mg/dL Urine Ketones (NEGATIVE) mg/dL Urine Occult Blood (NEGATIVE) Urine Nitrite (NEGATIVE) Urine Bilirubin (NEGATIVE) Urine Urobilinogen (<2.0) EU/dL Ur Leukocyte Esterase (NEGATIVE) Urine RBC (0-2/HPF) Urine WBC (0-5/HPF) Ur Epithelial Cells (NONE-FEW) Urine Bacteria (NEGATIVE) Urine Mucus (NONE-MOD) Urine Opiates Screen NEGATIVE (NEGATIVE) Ur Oxycodone Screen NEGATIVE (NEGATIVE) Urine Methadone Screen NEGATIVE (NEGATIVE) Ur Barbiturates Screen NEGATIVE (NEGATIVE) Ur Phencyclidine Scrn NEGATIVE (NEGATIVE) Ur Amphetamine Screen NEGATIVE (NEGATIVE) U Methamphetamines Scrn NEGATIVE (NEGATIVE) U Benzodiazepines Scrn NEGATIVE (NEGATIVE) U Cocaine Metab Screen NEGATIVE (NEGATIVE) U Marijuana (THC) Screen NEGATIVE (NEGATIVE) Ethyl Alcohol mg/dL Meds: Medications Discontinued Medications Generic Name Dose Route Start Last Admin Trade Name Freq PRN Reason Stop Dose Admin Sodium Chloride 1,000 mls @ 999 mls/hr 03/01/18 09:08 03/01/18 09:14 Normal Saline IV 03/01/18 10:08 999 mls/hr STAT ONE Administration Lorazepam 1 mg 03/01/18 09:08 03/01/18 09:14 Ativan IVPUSH 03/01/18 09:09 1 mg ONETIME ONE Administration Departure - Departure Time of Disposition: 10:40 Disposition: Home, Self-Care 01 Condition: Good Clinical Impression: Seizure-like activity - Discharge Information Additional Instructions: Medication as prescribed Return if symptoms persist or worsen 48 hours off work ER referral to neurology this week Follow-up with primary care in 2 weeks sooner as needed [facility] - Primary Care [address] [place] [id number] [facility] Specialty Care - Neurology Professional Building [address] [place] [address], [address] [place] [address] The following information is given to patients seen in the emergency department who are being discharged to home. This information is to outline your options for follow-up care. We provide all patients seen in our emergency department with a follow-up referral. The need for follow-up, as well as the timing and circumstances, are variable depending upon the specifics of your emergency department visit. If you don't have a primary care physician on staff, we will provide you with a referral. We always advise you to contact your personal physician following an emergency department visit to inform them of the circumstance of the visit and for follow-up with them and/or the need for any referrals to a consulting specialist. The emergency department will also refer you to a specialist when appropriate. This referral assures that you have the opportunity for follow-up care with a specialist. All of these measure are taken in an effort to provide you with optimal care, which includes your follow-up. Under all circumstances we always encourage you to contact your private physician who remains a resource for coordinating your care. When calling for follow-up care, please make the office aware that this follow-up is from your recent emergency room visit. If for any reason you are refused follow-up, please contact the [facility] emergency department at and asked to speak to the emergency department charge nurse. - My Orders Last 24 Hours: My Active Orders 03/01/18 09:07 EKG Documentation Completion [RC] STAT 03/01/18 10:00 DRUG SCREEN, URINE [URCHEM] Stat UA W/MICROSCOPIC [URIN] Stat - Assessment/Plan Last 24 Hours: My Active Orders 03/01/18 09:07 EKG Documentation Completion [RC] STAT 03/01/18 10:00 DRUG SCREEN, URINE [URCHEM] Stat UA W/MICROSCOPIC [URIN] Stat
[2018-03-01 10:20] LABS: CHLORIDE,CL 104 mmol/L (98-107); SODIUM,NA 138 mmol/L (136-148)
--- NOTE | 2018-03-01 10:23 | CR ---
EXAMINATION: Portable chest radiograph. HISTORY: Pain. FINDINGS: The trachea is midline. The cardiomediastinal silhouette is within normal limits. No pulmonary infilt rates, effusions or pneumothorax. Osseous structures appear unremarkable. IMPRESSION: No acute cardiopulmonary process.
--- NOTE | 2018-03-01 10:25 | CT ---
EXAMINATION: Non contrast CT head. Coronal and sagittal reformats. HISTORY: Pain FINDINGS: No evidence of intra or extra axial hemorrhage, mass, midline shift, hydrocephalus or edema. No hypoattenuation changes in the major vascular territories to suggest acute infarct. No abnormal intracranial calcifications are detected. No evidence of substantial vascular calcificat ions. Paranasal sinuses and mastoid air cells are well aerated without substantial findings. Orbits and gl obes are symmetric. Pituitary fossa appears unremarkable. Calvarium is intact. No evidence of skull fracture. IMPRESSION: No acute intracranial findings.
[2018-03-01 11:12] VITALS: BP 137/96
== END 2018-03-01 11:09 | disposition home or self-care (01) ==
LOC: MW.ED 09:05
DX: R56.9 Unspecified convulsions (principal); I10 Essential (primary) hypertension; F17.210 Nicotine dependence, cigarettes, uncomplicated
CPT/HCPCS: 36415; 70450; 71045; 80053; 80305; 81001; 84484; 85025; 93005; 96361; 96374; 99285; G0480; J2060; J7040

== ENCOUNTER 2019-03-12 10:58 | Emergency (ER) | payer BC ==
[2019-03-12 11:14] VITALS: BP 154/107
[2019-03-12] MEDS ORDERED: Ketorolac 60 MG/2 ML SDV IM ONE (11:29)
--- NOTE | 2019-03-12 11:38 | EDM.PDOC ---
ED HPI GENERAL MEDICAL PROBLEM - General Chief Complaint: Upper Extremity Injury/Pain Stated Complaint: ARM PAIN Time Seen by Provider: 03/12/19 11:08 Source of Information: Reports: Patient History Limitations: Reports: No Limitations - History of Present Illness INITIAL COMMENTS - FREE TEXT/NARRATIVE: HISTORY AND PHYSICAL: History of present illness: Patient is a 38-year-old male presents to the ED today with concern of neck and left shoulder pain. Patient states the neck pain has been ongoing over the past month and he has seen a chiropractor on several occasions without relief of symptoms. Patient states he has been taken Tylenol and ibuprofen around-the- clock for his symptoms without relief. Patient states this morning when he woke up he had left shoulder pain with shooting of pain down his arm. Patient states at times his fingers feel numb off and on of the left hand as well. He states at times he feels like he cannot squeeze as tightly with his left hand. Patient denies any injury or trauma or injury. Patient denies any other symptoms at this time. Patient states he does have a history of hypertension but denies any other health history. Patient denies fever, chills, chest pain, shortness of breath, or cough. Denies headache, neck stiff ness, change in vision, syncope, or near syncope. Denies nausea, vomiting, abdominal pain, diarrhea, constipation, or dysuria. Has not noted any blood in urine or stool. Patient has been eating and drinking appropriately. Review of systems: As per history of present illness and below otherwise all systems reviewed and negative. Past medical history: As per history of present illness and as reviewed below otherwise noncontributory. Surgical history: As per history of present illness and as reviewed below otherwise noncontributory. Social history: See social history for further information Family history: As per history of present illness and as reviewed below otherwise noncontributory. Physical exam: General: Patient is alert, oriented, and in no acute distress. Patient sitting comfortably on exam table. HEENT: Atraumatic, normocephalic, pupils equal and reactive bilaterally, negative for conjunctival pallor or scleral icterus, mucous membranes moist, TMs normal bilaterally, throat clear, neck supple, nontender, trachea midline. No drooling or trismus noted. No meningeal signs. No hot potato voice noted. Lungs: Clear to auscultation, breath sounds equal bilaterally, chest nontender. Heart: S1S2, regular rate and rhythm without overt murmur Abdomen: Soft, nondistended, nontender. Negative for masses or hepatosplenomegaly. Negative for costovertebral tenderness. Pelvis: Stable nontender. Genitourinary: Deferred. Rectal: Deferred. Skin: Intact, warm, dry. No lesions or rashes noted. Extremities: Atraumatic, negative for cords or calf pain. Neurovascular unremarkable. No obvious deformities of the complete spine were shoulders. No pain to palpation of the spinous process of the complete spine. Patient has full range of motion of the thoracic and lumbar spine. Patient has mild pain with range of motion of the cervical spine. Patient does express pain with palpation of the generalized shoulder. Patient has full range of motion of the left shoulder, left elbow, wrist, and digits. 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 Radial pulses grossly intact of bilateral upper extremities with capillary refill less than 2 seconds.. Patient has full sensation to complete bilateral extremities. Negative Phalen and Tinel sign. Positive Cortez and Neers impingement sign. Neuro: Awake, alert, oriented. Cranial nerves II through XII unremarkable. Cerebellum unremarkable. Motor and sensory unremarkable throughout. Exam nonfocal. Notes: Discussed the importance for follow-up with a primary care provider. Voices understanding and is agreeable to plan of care. Denies any further questions or concerns at this time. Diagnostics: CBC, CMP, EKG, troponin, shoulder x-ray, cervical spine CT Therapeutics: Norflex Prescription: Diclofenac, Flexeril Impression: Left shoulder nerve impingement Transaminitis Cervical spine foraminal narrowing Plan: 1. Rest, ice, elevate the affected extremity. You can apply ice 15 minutes on, 15 minutes off. 2. Take medication as prescribed as directed for pain management or discomfort. 3. Follow up with the Orthopedic provider/primary care provider as discussed and for repeat lab work. Return to the ED as needed and as discussed. Definitive disposition and diagnosis as appropriate pending reevaluation and review of above. Left Shoulder Pain Score (Numeric/FACES): 5 - Related Data Allergies Allergy/AdvReac Type Severity Reaction Status Date / Time No Known Allergies Allergy Verified 03/12/19 11:09 Home Meds: Home Meds . [No Known Home Meds] 07/25/17 [History] Past Medical History - Past Health History Medical/Surgical History: Denies Medical/Surgical History HEENT History: Reports: None Cardiovascular History: Reports: Hypertension, Other (See Below) Other Cardiovascular History: Dx chest pain Respiratory History: Reports: None Gastrointestinal History: Reports: None Genitourinary History: Reports: None Musculoskeletal History: Reports: None Neurological History: Reports: None Psychiatric History: Reports: None Endocrine/Metabolic History: Reports: None Hematologic History: Reports: None Immunologic History: Reports: None Oncologic (Cancer) History: Reports: None Dermatologic History: Reports: None - Infectious Disease History Infectious Disease History: Reports: None - Past Surgical History Head Surgeries/Procedures: Reports: None HEENT Surgical History: Reports: None GI Surgical History: Reports: Colonoscopy Male Surgical History: Reports: None Endocrine Surgical History: Reports: None Neurological Surgical History: Reports: None Musculoskeletal Surgical History: Reports: None Dermatological Surgical History: Reports: None Social & Family History - Family History Family Medical History: Noncontributory HEENT: Reports: None Cardiac: Reports: [place] Respiratory: Reports: None GI: Reports: None : Reports: None OBGYN: Reports: None Musculoskeletal: Reports: None Psychiatric: Reports: None Endocrine/Metabolic: Reports: None Hematologic: Reports: None Immunologic: Reports: None Dermatologic: Reports: None Oncologic: Reports: None - Tobacco Use Smoking Status *Q: Current Every Day Smoker Years of Tobacco use: 20 Packs/Tins Daily: 1 - Caffeine Use Caffeine Use: Reports: Coffee - Recreational Drug Use Recreational Drug Use: No Review of Systems - Review of Systems Review Of Systems: ROS reveals no pertinent complaints other than HPI. ED EXAM, GENERAL - Physical Exam Exam: See Below (See dictation) Course - Vital Signs Last Recorded V/S: Last Vital Signs Temp 35.9 C 03/12/19 11:11 Pulse 99 03/12/19 11:11 Resp 16 03/12/19 11:11 BP 154/107 H 03/12/19 11:11 Pulse Ox 95 03/12/19 11:11 - Orders/Labs/Meds Orders: Active Orders 24 hr Category Date Time Status EKG Documentation Completion [RC] STAT Care 03/12/19 11:29 Active Labs: Laboratory Tests 03/12/19 03/12/19 Range/Units 11:28 11:28 WBC 9.09 (4.0-11.0) K/uL RBC 5.12 (4.50-5.90) M/uL Hgb 15.8 (13.0-17.0) g/dL Hct 46.8 (38.0-50.0) % MCV 91.4 (80.0-98.0) fL MCH 30.9 (27.0-32.0) pg MCHC 33.8 (31.0-37.0) g/dL RDW Std Deviation 45.8 (28.0-62.0) fl RDW Coeff of Irina 14 (11.0-15.0) % Plt Count 194 (150-400) K/uL MPV 10.10 (7.40-12.00) fL Neut % (Auto) 65.6 (48.0-80.0) % Lymph % (Auto) 27.3 (16.0-40.0) % [place] % (Auto) 5.0 (0.0-15.0) % Eos % (Auto) 1.5 (0.0-7.0) % Baso % (Auto) 0.6 (0.0-1.5) % Neut # (Auto) 6.0 H (1.4-5.7) K/uL Lymph # (Auto) 2.5 H (0.6-2.4) K/uL [place] # (Auto) 0.5 (0.0-0.8) K/uL Eos # (Auto) 0.1 (0.0-0.7) K/uL Baso # (Auto) 0.1 (0.0-0.1) K/uL Nucleated RBC % 0.0 /100WBC Nucleated RBCs # 0 K/uL Sodium 139 (136-148) mmol/L Potassium 3.9 (3.5-5.1) mmol/L Chloride 104 (98-107) mmol/L Carbon Dioxide 27.0 (21.0-32.0) mmol/L BUN 17 (7.0-18.0) mg/dL Creatinine 1.4 H (0.8-1.3) mg/dL Est Cr Clr Drug Dosing 80.06 mL/min Estimated GFR (MDRD) 56.4 ml/min Glucose 122 H (74-106) mg/dL Calcium 9.4 (8.5-10.1) mg/dL Total Bilirubin 0.5 (0.2-1.0) mg/dL AST 39 H (15-37) IU/L ALT 91 H (14-63) IU/L Alkaline Phosphatase 78 (46-116) U/L Troponin I < 0.050 (0.000-0.056) ng/mL Total Protein 7.4 (6.4-8.2) g/dL Albumin 3.9 (3.4-5.0) g/dL Globulin 3.5 (2.6-4.0) g/dL Albumin/Globulin Ratio 1.1 (0.9-1.6) Meds: Medications Discontinued Medications Generic Name Dose Route Start Last Admin Trade Name Freq PRN Reason Stop Dose Admin Ketorolac Tromethamine 60 mg 03/12/19 11:29 Toradol IM 03/12/19 11:30 ONETIME ONE Orphenadrine Citrate 60 mg 03/12/19 11:29 03/12/19 11:47 Norflex IM 03/12/19 11:30 60 mg NOW STA Administration Departure - Departure Time of Disposition: 12:27 Disposition: Home, Self-Care 01 Clinical Impression: Transaminitis, Foraminal stenosis of cervical region Shoulder impingement Qualifiers: Laterality: left Qualified Code(s): M75.42 - Impingement syndrome of left shoulder - Discharge Information Referrals: PCP,None [Primary Care Provider] - Forms: ED Department Discharge Additional Instructions: The following information is given to patients seen in the emergency department who are being discharged to home. This information is to outline your options for follow-up care. We provide all patients seen in our emergency department with a follow-up referral. The need for follow-up, as well as the timing and circumstances, are variable depending upon the specifics of your emergency department visit. If you don't have a primary care physician on staff, we will provide you with a referral. We always advise you to contact your personal physician following an emergency department visit to inform them of the circumstance of the visit and for follow-up with them and/or the need for any referrals to a consulting specialist. The emergency department will also refer you to a specialist when appropriate. This referral assures that you have the opportunity for follow-up care with a specialist. All of these measure are taken in an effort to provide you with optimal care, which includes your follow-up. Under all circumstances we always encourage you to contact your private physician who remains a resource for coordinating your care. When calling for follow-up care, please make the office aware that this follow-up is from your recent emergency room visit. If for any reason you are refused follow-up, please contact the [facility] Emergency Department at and asked to speak to the emergency department charge nurse. [facility] [address] [place] [id number] [address] [facility] [address] [place] [address], [address] [place] [address] 1. Rest, ice, elevate the affected extremity. You can apply ice 15 minutes on, 15 minutes off. 2. Take medication as prescribed as directed for pain management or discomfort. 3. Follow up with the Orthopedic provider/primary care provider as discussed. Return to the ED as needed and as discussed. - My Orders Last 24 Hours: My Active Orders 03/12/19 11:29 EKG Documentation Completion [RC] STAT - Assessment/Plan Last 24 Hours: My Active Orders 03/12/19 11:29 EKG Documentation Completion [RC] STAT
[2019-03-12 12:16] LABS: CHLORIDE,CL 104 mmol/L (98-107); SODIUM,NA 139 mmol/L (136-148)
--- NOTE | 2019-03-12 12:16 | CR ---
INDICATION: Shoulder pain. TECHNIQUE: Three views left shoulder. FINDINGS: Small lucencies in the humeral head chronic and benign. Mild degenerative arthritis left shoulder. No acute fracture or dislocation left shoulder. Dictated by Ru Young MD @ Mar 12 2019 12:12PM Signed by Dr. Ru Young @ Mar 12 2019 12:13PM
--- NOTE | 2019-03-12 12:24 | CT ---
INDICATION: Pain for 1 month. No injury. TECHNIQUE: CT cervical spine performed without IV contrast including axial, coronal, and sagittal images. FINDINGS: No acute fracture or subluxation in the cervical spine. Mild motion artifact. Mild narrowing of the C7 and T1 interspaces. Loss of the cervical lordosis. Small lymph nodes in the neck bilaterally some which in the upper neck are mildly prominent. Mild to moderate foraminal narrowing in the lower cervical spine. Small nodules in the subcutaneous tissues of the lower neck should be benign. Remainder negative. IMPRESSION: 1. Mild degenerative changes in the cervical spine with mild to moderate foraminal narrowing in the lower cervical spine. No fracture or subluxation in cervical spine. Loss of cervical lordosis could be related to cervical spasm. 2. Few mildly prominent lymph nodes in the upper neck and soft tissue nodules in the subcutaneous tissues of the lower neck posteriorly and are likely benign and inflammatory or reactive. Please note that all CT scans at this facility use dose modulation, iterative reconstruction, and/or weight-based dosing when appropriate to reduce radiation dose to as low as reasonably achievable. Dictated by Ru Young MD @ Mar 12 2019 12:15PM Signed by Dr. Ru Young @ Mar 12 2019 12:24PM
== END 2019-03-12 12:42 | disposition home or self-care (01) ==
LOC: MW.ED 10:58
DX: M75.42 Impingement syndrome of left shoulder (principal); M48.02 Spinal stenosis, cervical region; R74.0 Nonspecific elevation of levels of transaminase and lactic acid dehydrogenase [LDH]
CPT/HCPCS: 36415; 72125; 73030; 80053; 84484; 85025; 93005; 96372; 99284; J2360

== ENCOUNTER 2024-03-05 01:40 | Emergency (ER) | payer BC ==
[2024-03-05] MEDS: Sodium Chloride 0.9% 2.5 ML Syringe FLUSH PRN (01:59)
[2024-03-05] MEDS: Ondansetron 4 MG/2 ML SDV IVPUSH ONE (01:59)
[2024-03-05 02:00] LABS: BASOPHILS ABSOLUTE AUTO 0.07 K/uL (0.00-0.20); BASOPHILS PERCENT AUTO 0.8 % (0.0-1.0); EOSINOPHILS PERCENT AUTO 2.3 % (0.0-6.0); HEMATOCRIT 46.7 % (42.0-52.0); HEMOGLOBIN 16.1 g/dL (14.0-18.0); IMMATURE GRAN ABSOLUTE AUTO 0.04 K/uL (0.00-0.05); IMMATURE GRAN PERCENT AUTO 0.5 % (0.0-0.4); LYMPHOCYTES ABSOLUTE AUTO 3.17 K/uL (1.00-4.80); LYMPHOCYTES PERCENT AUTO 36.5 % (24.0-44.0); MEAN CORPUSCULAR HEMOGLOBIN 32.1 pg (28.0-32.0); MEAN CORPUSCULAR HGB CONC 34.5 g/dL (32.0-36.0); MEAN PLATELET VOLUME 9.8 fL (9.4-12.4); MONOCYTES ABSOLUTE AUTO 0.39 K/uL (0.00-0.80); MONOCYTES PERCENT AUTO 4.5 % (0.0-8.0); NEUTROPHILS ABSOLUTE AUTO 4.82 K/uL (1.80-7.70); NEUTROPHILS PERCENT AUTO 55.4 % (41.0-71.0); PLATELET COUNT,PLT 178 K/uL (150-400); RED BLOOD CELL COUNT 5.02 M/uL (4.52-5.90); WHITE BLOOD CELL COUNT,WBC 8.69 K/uL (3.9-11.3)
[2024-03-05] MEDS: Sodium Chloride 0.9% 10 ML Syringe FLUSH PRN (02:00)
[2024-03-05 02:07] LABS: INR 1.07 (0.86-1.11)
[2024-03-05 02:43] LABS: A/G RATIO 0.9 (0.9-1.6); ACETAMINOPHEN <2.0 ug/mL; ALANINE AMINOTRANSFERASE,ALT 65 IU/L (14-63); ALBUMIN 3.7 g/dL (3.4-5.0); ALKALINE PHOSPHATASE 76 U/L (46-116); ASPARTATE AMNIOTRANSFERASE,AST 29 IU/L (15-37); BILIRUBIN TOTAL 0.3 mg/dL (0.2-1.0); BLOOD UREA NITROGEN,BUN 10 mg/dL (7.0-18.0); CALCIUM 8.5 mg/dL (8.5-10.1); CARBON DIOXIDE,CO2 25.2 mmol/L (21.0-32.0); CHLORIDE,CL 104 mmol/L (98-107); CREATININE 1.1 mg/dL (0.8-1.3); EST CRCL DRUG DOSING (CG) 94.06 mL/min; ETHANOL BLOOD MEDICAL 282 mg/dL; GLUCOSE RANDOM 142 mg/dL (74-106); MAGNESIUM 2.4 mg/dL (1.8-2.4); POTASSIUM,K 3.8 mmol/L (3.5-5.1); PROTEIN TOTAL,TP 7.9 g/dL (6.4-8.2); SALICYLATE 7.7 mg/dL (0.0-20.0); SODIUM,NA 141 mmol/L (136-148); TSH ULTRASENSITIVE 2.92 uIU/mL (0.36-3.74)
[2024-03-05 02:44] LABS: ESTIMATED GFR 85 mL/min (>60)
[2024-03-05 03:26] LABS: AMPHETAMINES SCREEN, URINE NEGATIVE (CUTOFF=500); BARBITURATE SCREEN,URINE NEGATIVE (CUTOFF=200); BENZODIAZEPINES SCREEN,URINE NEGATIVE (CUTOFF=150); BUPRENORPHINE SCREEN,URINE NEGATIVE (CUTOFF=10); METHADONE SCREEN, URINE NEGATIVE (CUTOFF=200); METHAMPHETAMINES SCREEN, URINE NEGATIVE (CUTOFF=500); OXYCODONE SCREEN,URINE NEGATIVE (CUT0FF=100); PCP SCREEN,URINE NEGATIVE (CUTOFF=25); THC SCREEN,URINE 20 NG/ML NEGATIVE (CUTOFF=50)
[2024-03-05 08:42] VITALS: BP 123/83; PULSE 100
== END 2024-03-05 09:08 | disposition home or self-care (01) ==
LOC: MW.ED 01:40
DX: T42.4X1A Poisoning by benzodiazepines, accidental (unintentional), initial encounter (principal); I10 Essential (primary) hypertension; Z79.899 Other long term (current) drug therapy
CPT/HCPCS: 36415; 80053; 80143; 80179; 80305; 80307; 82947; 83735; 84443; 84484; 85025; 85610; 87635; 93005; 96374; 99284; J2405; J3490; 93010; U0002

== ENCOUNTER 2024-05-09 11:24 | Emergency (ER) | payer BC ==
[2024-05-09 13:59] LABS: BASOPHILS ABSOLUTE AUTO 0.06 K/uL (0.00-0.20); BASOPHILS PERCENT AUTO 0.5 % (0.0-1.0); EOSINOPHILS ABSOLUTE AUTO 0.14 K/uL (0.00-0.45); EOSINOPHILS PERCENT AUTO 1.3 % (0.0-6.0); HEMATOCRIT 48.9 % (42.0-52.0); HEMOGLOBIN 16.4 g/dL (14.0-18.0); IMMATURE GRAN ABSOLUTE AUTO 0.04 K/uL (0.00-0.05); IMMATURE GRAN PERCENT AUTO 0.4 % (0.0-0.4); LYMPHOCYTES ABSOLUTE AUTO 2.44 K/uL (1.00-4.80); MEAN CORPUSCULAR HEMOGLOBIN 31.5 pg (28.0-32.0); MEAN CORPUSCULAR HGB CONC 33.5 g/dL (32.0-36.0); MEAN CORPUSCULAR VOLUME 93.9 fL (83.0-99.0); MEAN PLATELET VOLUME 10.2 fL (9.4-12.4); MONOCYTES ABSOLUTE AUTO 0.67 K/uL (0.00-0.80); NEUTROPHILS ABSOLUTE AUTO 7.75 K/uL (1.80-7.70); NEUTROPHILS PERCENT AUTO 69.8 % (41.0-71.0); PLATELET COUNT,PLT 189 K/uL (150-400); RED BLOOD CELL COUNT 5.21 M/uL (4.52-5.90)
[2024-05-09 14:22] LABS: A/G RATIO 1.1 (0.9-1.6); ALBUMIN 3.8 g/dL (3.4-5.0); BILIRUBIN TOTAL 0.7 mg/dL (0.2-1.0); CALCIUM 9.2 mg/dL (8.5-10.1); CARBON DIOXIDE,CO2 26.9 mmol/L (21.0-32.0); CREATININE 1.1 mg/dL (0.8-1.3); EST CRCL DRUG DOSING (CG) 96.85 mL/min; POTASSIUM,K 4.3 mmol/L (3.5-5.1); PROTEIN TOTAL,TP 7.3 g/dL (6.4-8.2)
[2024-05-09] MEDS: Nicotine 21 MG/24 Hr Patch TRDERM ONE (14:35)
[2024-05-09 15:32] VITALS: BP 148/110; PULSE 72
== END 2024-05-09 15:33 | disposition home or self-care (01) ==
LOC: MW.ED 11:24
DX: L03.114 Cellulitis of left upper limb (principal); I10 Essential (primary) hypertension; Z79.899 Other long term (current) drug therapy; Z75.8 Other problems related to medical facilities and other health care
CPT/HCPCS: 36415; 80053; 82550; 85025; 93971-26-LT; 93971-LT; 99283; 99284

== ENCOUNTER 2024-12-29 19:58 | Emergency (ER) | payer BC ==
[2024-12-29 20:20] LABS: BASOPHILS ABSOLUTE AUTO 0.06 K/uL (0.00-0.20); BASOPHILS PERCENT AUTO 0.6 % (0.0-1.0); EOSINOPHILS ABSOLUTE AUTO 0.23 K/uL (0.00-0.45); EOSINOPHILS PERCENT AUTO 2.4 % (0.0-6.0); HEMATOCRIT 45.2 % (42.0-52.0); HEMOGLOBIN 15.5 g/dL (14.0-18.0); IMMATURE GRAN ABSOLUTE AUTO 0.03 K/uL (0.00-0.05); IMMATURE GRAN PERCENT AUTO 0.3 % (0.0-0.4); LYMPHOCYTES PERCENT AUTO 28.2 % (24.0-44.0); MEAN CORPUSCULAR HEMOGLOBIN 31.9 pg (28.0-32.0); MEAN CORPUSCULAR HGB CONC 34.3 g/dL (32.0-36.0); MEAN PLATELET VOLUME 9.7 fL (9.4-12.4); MONOCYTES ABSOLUTE AUTO 0.52 K/uL (0.00-0.80); MONOCYTES PERCENT AUTO 5.4 % (0.0-8.0); NEUTROPHILS ABSOLUTE AUTO 6.02 K/uL (1.80-7.70); NEUTROPHILS PERCENT AUTO 63.1 % (41.0-71.0); PLATELET COUNT,PLT 175 K/uL (150-400); RED BLOOD CELL COUNT 4.86 M/uL (4.52-5.90); WHITE BLOOD CELL COUNT,WBC 9.56 K/uL (3.9-11.3)
[2024-12-29 20:44] LABS: ALBUMIN 3.6 g/dL (3.4-5.0); BILIRUBIN TOTAL 0.2 mg/dL (0.2-1.0); CALCIUM 9.6 mg/dL (8.5-10.1); CARBON DIOXIDE,CO2 30.4 mmol/L (21.0-32.0); CREATININE 1.3 mg/dL (0.8-1.3); EST CRCL DRUG DOSING (CG) 81.1 mL/min; MAGNESIUM 1.8 mg/dL (1.8-2.4); POTASSIUM,K 4.1 mmol/L (3.5-5.1); PROTEIN TOTAL,TP 7.3 g/dL (6.4-8.2)
[2024-12-29 21:16] LABS: APPEARANCE,URINE SLT CLOUDY; BILIRUBIN,URINE NEGATIVE (NEGATIVE); COLOR,URINE YELLOW; GLUCOSE,URINE NEGATIVE (NEGATIVE); KETONES,URINE NEGATIVE (NEGATIVE); LEUKOCYTE ESTERASE,URINE NEGATIVE (NEGATIVE); NITRITE,URINE NEGATIVE (NEGATIVE); OCCULT BLOOD,URINE NEGATIVE (NEGATIVE); PH,URINE 6.5 (5.0-8.0); PROTEIN,URINE NEGATIVE (NEGATIVE); UROBILINOGEN,URINE 0.2 EU/dL (<2.0)
[2024-12-29 22:02] VITALS: BP 192/131; PULSE 80
== END 2024-12-29 22:01 | disposition home or self-care (01) ==
LOC: MW.ED 19:58
DX: R07.9 Chest pain, unspecified (principal); I10 Essential (primary) hypertension; Z75.8 Other problems related to medical facilities and other health care; Z79.899 Other long term (current) drug therapy; F17.210 Nicotine dependence, cigarettes, uncomplicated
CPT/HCPCS: 36415; 71046; 71046-26; 80053; 81003; 83690; 83735; 84484; 85025; 93005; 99285